=== PATIENT | female | born 1965 | race African-American/Black ===

== ENCOUNTER 2017-08-29 13:16 | Emergency (ER) | payer OTHER ==
[~2017-08-29] VITALS: Ht 160 cm; Wt 100.0 kg
[~2017-08-29 13:16] MED LIST: ASPI81TA47; INSLAN SQ; LISI10TA5 PO; METF500T6
[2017-08-29 13:39] VITALS: BP 169/91
== END 2017-08-29 17:52 | disposition home or self-care (01) ==
LOC: ER 13:16
DX: H60.91 Unspecified otitis externa, right ear (principal); I10 Essential (primary) hypertension; E11.9 Type 2 diabetes mellitus without complications; Z79.4 Long term (current) use of insulin; Z79.899 Other long term (current) drug therapy
CPT/HCPCS: 81025; 99283

== ENCOUNTER 2018-04-08 15:31 | Emergency (ER) | payer OTHER ==
[~2018-04-08] VITALS: Ht 167.6 cm; Wt 73.0 kg
[~2018-04-08 15:31] MED LIST changes: +METF-414; -METF500T6
[2018-04-08 17:37] VITALS: BP 179/99
[2018-04-08] MEDS ORDERED: IBUPROFEN 600MG TABLET PO ONE (22:15)
== END 2018-04-08 22:40 | disposition home or self-care (01) ==
LOC: ER 15:31
DX: M79.621 Pain in right upper arm (principal); I10 Essential (primary) hypertension; E11.9 Type 2 diabetes mellitus without complications; Z79.899 Other long term (current) drug therapy; Z79.84 Long term (current) use of oral hypoglycemic drugs
CPT/HCPCS: 99282